=== PATIENT | female | born 1995 | race Two or more races ===

== ENCOUNTER 2019-10-08 06:25 | Inpatient (IN) | payer MEDICAID ==
[~2019-10-08] VITALS: Ht 157.5 cm; Wt 92.5 kg
[~2019-10-08 06:25] MED LIST: PREN-96 PO
[2019-10-08] MEDS ORDERED: LACT. RINGERS/OXYTOCIN 20UNITS 1,000 ML IV SCH (07:57)
[2019-10-08] MEDS ORDERED: PHISODERM TOP SOLN 240ML BTL TOP PRN (08:00)
[2019-10-08] MEDS ORDERED: LIDOCAINE 2%HCL (LOCAL ANESTH.) INJ 20ML MDV ID ONE (08:00)
[2019-10-08] MEDS ORDERED: DERMOPLAST 60ML BOTTLE TOP PRN (08:00)
[2019-10-08] MEDS ORDERED: WITCH HAZEL-GLYCERIN PAD TOP PRN (08:00)
[2019-10-08] MEDS ORDERED: BETAMETHASONE ACET (6MG/ML) 5ML VIAL IM ONE ×2 (08:00→20:30)
[2019-10-08] MEDS ORDERED: NALBUPHINE HCL 10 MG/1ml INJECTION IV PRN (08:00)
[2019-10-08] MEDS: ceFAZolin 1GM/50ML 50 ML IV SCH ×2 (08:37→16:44)
[2019-10-08 08:42] LABS: Basophils # (auto) 0.1 uL; Basophils % (auto) 0.5 % (0.0-2.0); Eosinophils # (auto) 0.1 uL; Eosinophils % (auto) 0.7 % (0.0-7.0); Hematocrit 39.2 % (36.0-46.0); Lymphocytes # (auto) 2.5 uL; Lymphocytes % (auto) 21.4 % (10.0-50.0); Mean Corpuscular Hemoglobin 27.4 pg (28.0-32.0); Mean Corpuscular Hgb Conc. 33.2 g/dL (32.0-36.0); Mean Corpuscular Volume 82.5 fL (80.0-100.0); Monocytes # (auto) 0.7 uL; Monocytes % (auto) 6.2 % (0.0-12.0); Neutrophils # (auto) 8.2 uL; Neutrophils % (auto) 71.2 % (37.0-80.0); Nucleated Red Blood Cells % 0.1 %; Platelet Count (auto) 250 10^3/uL (140-450); Red Blood Cells 4.74 10^6/uL (4.0-5.20); Red Cell Distribution Width 13.8 % (11.8-14.3); White Blood Cell 11.6 10^3/uL (4.4-10.8)
[2019-10-08] MEDS: LACTATED RINGER'S 1,000 ML IV SCH ×3 (08:43→22:04)
[2019-10-08 08:51] LABS: Urine Bacteria NONE SEEN /hpf (None Seen); Urine Blood Negative /uL (Negative); Urine Specific Gravity 1.021 (1.001-1.035); Urine WBC 1 /hpf (0 - 5)
[2019-10-08 08:56] LABS: INR 0.91 (0.9-1.15); Partial Thromboplastin Time 25.9 sec (23.64-32.05)
[2019-10-08 08:59] LABS: Albumin 2.4 g/dL (3.4-5.0); Potassium 4.1 mmol/L (3.5-5.1)
[2019-10-08 09:05] LABS: Bilirubin, Total 0.5 mg/dL (0.2-1.0); Total Protein 6.9 g/dL (6.4-8.2); Uric Acid 4.8 mg/dL (2.6-6.0)
[2019-10-09] MEDS: ceFAZolin 1GM/50ML 50 ML IV SCH ×2 (00:45→08:58)
[2019-10-09] MEDS: LACTATED RINGER'S 1,000 ML IV SCH ×4 (04:47→14:33)
[2019-10-09 05:06] LABS: RPR Non Reactive (Non Reactive)
[2019-10-09] MEDS ORDERED: LACT. RINGERS/OXYTOCIN 20UNITS 1,000 ML IV SCH ×2 (06:03→06:58)
[2019-10-09] MEDS ORDERED: TERBUTALINE SULFATE 1 MG/ML 1ML VIAL SC ONE (06:15)
[2019-10-09] MEDS ORDERED: TERBUTALINE SULFATE 1 MG/ML 1ML VIAL SC PRN (07:00)
[2019-10-09] MEDS ORDERED: ePHEDrine SULFATE 50 MG/ML AMP IV ONE (08:45)
[2019-10-09] MEDS ORDERED: NALOXONE HCL 0.4 MG/ML VIAL IV ONE (08:45)
[2019-10-09] MEDS ORDERED: fentaNYL W ROPIVACAINE 150 ML EPI SCH (08:45)
[2019-10-09] MEDS ORDERED: DEXTROSE 10% 5 ML IV ONE (17:15)
[2019-10-09] MEDS ORDERED: DEXTROSE 10% 250 ML IV SCH (17:15)
[2019-10-09] MEDS: IBUPROFEN 600 MG TAB PO PRN ×2 (18:30→23:01)
[2019-10-09 18:47] VITALS: BP 128/64
[2019-10-09 23:00] VITALS: BP 92/50
[2019-10-10 02:34] VITALS: BP 94/48
--- NOTE | 2019-10-10 06:00 | NUR ---
IV removal IV DC'd Right hand with clean sterile technique, catheter fully intact. Pressure dressing applied to site. Patient tolerated well. NOTE:
[2019-10-10 07:17] VITALS: BP 115/58
[2019-10-10] MEDS: IBUPROFEN 600 MG TAB PO PRN (07:36)
[2019-10-10 10:39] VITALS: BP 106/66
--- NOTE | 2019-10-10 10:40 | NUR ---
PT PUMPING AT THIS TIME IN ROOM. NO DISTRESS NOTED. PT DENIES ANY PAIN AT THIS TIME. WILL CONTINUE TO MONITOR.
--- NOTE | 2019-10-10 12:00 | NUR ---
Discharge: Discharge instructions given as ordered. Pt encouraged to follow up with [facility] as instructed. All questions and concerns addressed. Patient verbalized understanding. Medication reconciliation completed and copy given to patient. Patient encouraged to prepare to depart unit.
--- NOTE | 2019-10-10 12:05 | NUR ---
DR. GARCIA AT NURSES STATION, FULL SBAR GIVEN, STATUS UPDATE GIVEN ON PATIENT, TRENDING VITAL SIGNS GIVEN. ORDERS RECEIVED FROM DR. GARCIA TO DISCHARGE PT HOME AND FOLLOW UP SCHEDULED IN OB CLINIC. READ BACK ND VERIFIED ORDERS. WILL CARRY OUT.
--- NOTE | 2019-10-10 12:55 | NUR ---
PT PUMPING AT BEDSIDE, WILL NOTIFY RN WHEN FINISHED TO BE DISCHARGED. NO S/S OF DISTRESS OR SOB NOTED. WILL CONTINUE TO MONITOR.
--- NOTE | 2019-10-10 13:11 | NUR ---
PT FINISHED PUMPING, PREPARING TO DEPART UNIT.
--- NOTE | 2019-10-10 13:15 | NUR ---
Discharge: Patient taken to vehicle ambulatory via steady gait, pt declined wheelchair with all personal belongings, accompanied by staff and and family members. No distress noted at time of departure, no adverse changes in status since initial assessment.
== END 2019-10-10 13:15 | disposition home or self-care (01) | DRG 560 ==
LOC: LDRP 06:25 → MERGE 07:55 → OBSVTOIN 07:55 → LDRP 08:18
PROVIDERS: ADMIT Obstetrics & Gynecology; ATTEND Obstetrics & Gynecology
PROC: 10E0XZZ Delivery of Products of Conception, External Approach (ICD-10-PCS; principal; 2019-10-10)
PROC: 3E0R3BZ Introduction of Anesthetic Agent into Spinal Canal, Percutaneous Approach (ICD-10-PCS; 2019-10-10)
PROC: 00HU33Z Insertion of Infusion Device into Spinal Canal, Percutaneous Approach (ICD-10-PCS; 2019-10-10)
DX: O42.913 Preterm premature rupture of membranes, unspecified as to length of time between rupture and onset of labor, third trimester (principal); O69.81X0 Labor and delivery complicated by cord around neck, without compression, not applicable or unspecified; Z37.0 Single live birth; Z3A.36 36 weeks gestation of pregnancy
CPT/HCPCS: 36415; 59025; 59409; 76805; 80053; 81001; 81002; 84112; 84550; 85025; 85610; 85730; 86592; 86850; 86900; 86901; 96361; 96366; 96372; G0378; J0690; J2590; J3010

== ENCOUNTER 2020-10-07 12:06 | Observation (INO) | payer MEDICAID | END 2020-10-07 14:48 | disposition home or self-care (01) | LOC: LDRP 12:06 | PROVIDERS: ADMIT Specialist; ATTEND Specialist | DX: O26.93 Pregnancy related conditions, unspecified, third trimester (principal); O99.513 Diseases of the respiratory system complicating pregnancy, third trimester; R42 Dizziness and giddiness; R06.02 Shortness of breath; G89.29 Other chronic pain; M54.5 Low back pain; Z3A.35 35 weeks gestation of pregnancy | CPT/HCPCS: 59025; 76818; 81002; G0378 ==

== ENCOUNTER 2020-10-09 13:58 | Observation (INO) | payer MEDICAID ==
[2020-10-13] MEDS ORDERED: ACYC1CAP23 PO ×2 (16:35)
[2020-10-13] MEDS ORDERED: NIF10C PO ×2 (19:26)
== END 2020-10-09 15:12 | disposition home or self-care (01) ==
LOC: LDRP 13:58
PROVIDERS: ADMIT Obstetrics & Gynecology; ATTEND Obstetrics & Gynecology
DX: O40.3XX0 Polyhydramnios, third trimester, not applicable or unspecified (principal); Z3A.35 35 weeks gestation of pregnancy
CPT/HCPCS: 59025; 76818; 81002; G0378

== ENCOUNTER 2020-10-13 14:46 | Observation (INO) | payer MEDICAID ==
[2020-10-13] MEDS ORDERED: ACYC1CAP23 PO (16:35)
[2020-10-13] MEDS ORDERED: BETAMETHASONE ACET (6MG/ML) 5ML VIAL IM ONE (17:00)
[2020-10-13] MEDS ORDERED: LACTATED RINGER'S 1,000 ML IV ONE (17:00)
[2020-10-13] MEDS ORDERED: TERBUTALINE SULFATE 1 MG/ML 1ML VIAL SC ONE (18:09)
[2020-10-13] MEDS ORDERED: TERBUTALINE SULFATE 1 MG/ML 1ML VIAL SC SCH (18:15)
[2020-10-13] MEDS ORDERED: NIF10C PO (19:26)
== END 2020-10-13 19:40 | disposition home or self-care (01) ==
LOC: LDRP 14:46
PROVIDERS: ADMIT Obstetrics & Gynecology; ATTEND Obstetrics & Gynecology
DX: O40.3XX0 Polyhydramnios, third trimester, not applicable or unspecified (principal); O62.9 Abnormality of forces of labor, unspecified; Z3A.36 36 weeks gestation of pregnancy
CPT/HCPCS: 59025; 76818; 81002; 96360; 96361; 96372; G0378; J0702; J3105

== ENCOUNTER 2020-10-14 16:57 | Observation (INO) | payer MEDICAID ==
[~2020-10-14 16:57] MED LIST changes: +ACYC1CAP23 PO; +NIF10C PO
[2020-10-14] MEDS ORDERED: BETAMETHASONE ACET (6MG/ML) 5ML VIAL IM ONE (17:30)
== END 2020-10-14 18:05 | disposition home or self-care (01) ==
LOC: LDRP 16:57
PROVIDERS: ADMIT Specialist; ATTEND Specialist
DX: O60.03 Preterm labor without delivery, third trimester (principal); O40.3XX0 Polyhydramnios, third trimester, not applicable or unspecified; Z3A.36 36 weeks gestation of pregnancy
CPT/HCPCS: 59025; 81002; 82948; 82962; 96372; G0378; J0702

== ENCOUNTER 2020-10-17 11:10 | Observation (INO) | payer MEDICAID | END 2020-10-17 12:25 | disposition home or self-care (01) | LOC: UNDOADMOB 11:10 → LDRP 11:10 → UNDODISOB 12:25 | PROVIDERS: ADMIT Obstetrics & Gynecology; ATTEND Obstetrics & Gynecology | DX: O60.03 Preterm labor without delivery, third trimester (principal); O40.3XX0 Polyhydramnios, third trimester, not applicable or unspecified; Z3A.36 36 weeks gestation of pregnancy; Z79.899 Other long term (current) drug therapy | CPT/HCPCS: 59025; 81002; G0378 ==

== ENCOUNTER 2020-10-20 18:54 | Observation (INO) | payer MEDICAID | END 2020-10-20 20:13 | disposition home or self-care (01) | LOC: LDRP 18:54 | PROVIDERS: ADMIT Obstetrics & Gynecology; ATTEND Obstetrics & Gynecology | DX: O40.3XX0 Polyhydramnios, third trimester, not applicable or unspecified (principal); Z3A.37 37 weeks gestation of pregnancy | CPT/HCPCS: 59025; 76818; 81002; G0378 ==

== ENCOUNTER 2020-10-27 19:09 | Observation (INO) | payer MEDICAID ==
[~2020-10-27 19:09] MED LIST changes: -NIF10C PO
== END 2020-10-27 20:57 | disposition home or self-care (01) ==
LOC: UNDOADMOB 19:09 → LDRP 19:09 → UNDODISOB 20:57
PROVIDERS: ADMIT Obstetrics & Gynecology; ATTEND Obstetrics & Gynecology
DX: O40.3XX0 Polyhydramnios, third trimester, not applicable or unspecified (principal); Z3A.38 38 weeks gestation of pregnancy
CPT/HCPCS: 59025; 76818; 81002; G0378

== ENCOUNTER 2020-10-30 18:50 | Observation (INO) | payer MEDICAID | END 2020-10-30 20:22 | disposition home or self-care (01) | LOC: UNDOADMOB 18:50 → LDRP 18:50 → UNDODISOB 20:22 | PROVIDERS: ADMIT Obstetrics & Gynecology; ATTEND Obstetrics & Gynecology | DX: O40.3XX0 Polyhydramnios, third trimester, not applicable or unspecified (principal); Z3A.38 38 weeks gestation of pregnancy | CPT/HCPCS: 59025; 76818; 81002; G0378 ==

== ENCOUNTER 2020-11-04 06:50 | Inpatient (IN) | payer MEDICAID ==
[~2020-11-04] VITALS: Ht 160 cm; Wt 101.2 kg
[2020-11-04] MEDS ORDERED: PHISODERM TOP SOLN 240ML BTL TOP PRN (07:15)
[2020-11-04] MEDS ORDERED: DERMOPLAST 60ML BOTTLE TOP PRN (07:15)
[2020-11-04] MEDS ORDERED: miSOPROStol 50 MCG per PRE-CUT 1/2 TAB PO PRN (07:15)
[2020-11-04] MEDS ORDERED: BUTORPHANOL TARTRATE 2 MG/1 ML VIAL IV PRN ×2 (07:15)
[2020-11-04] MEDS ORDERED: LIDOCAINE 2%HCL (LOCAL ANESTH.) INJ 20ML MDV IJ PRN (07:15)
[2020-11-04] MEDS ORDERED: WITCH HAZEL-GLYCERIN PAD TOP PRN (07:15)
[2020-11-04] MEDS ORDERED: PROMETHAZINE HCL 25 MG/ML 1ML IV PRN (07:15)
[2020-11-04] MEDS: LACTATED RINGER'S 1,000 ML IV SCH ×2 (07:35→14:51)
[2020-11-04] MEDS ORDERED: LACT. RINGERS/OXYTOCIN 20UNITS 1,000 ML IV ONE (07:45)
[2020-11-04 08:35] LABS: Urine Bacteria FEW /hpf (None Seen); Urine Blood TRACE /uL (Negative); Urine Hyaline Cast FEW /lpf (0 - 2); Urine Mucus FEW (None Seen); Urine Specific Gravity 1.025 (1.001-1.035); Urine WBC 7 /hpf (0 - 5)
[2020-11-04 08:39] LABS: Alcohol, Urine < 3.0 mg/dL (0-10); Amphetamine Screen, Urine NEGATIVE (NEGATIVE); Barbiturate Scree,Urine NEGATIVE (NEGATIVE); Benzodiazephine Screen, Urine NEGATIVE (NEGATIVE); Cannabinoid Screen, Urine NEGATIVE (NEGATIVE); Cocaine Screen, Urine NEGATIVE (NEGATIVE); Opiate Scree,Urine NEGATIVE (NEGATIVE); Phencyclidine Screen, Urine NEGATIVE (NEGATIVE)
[2020-11-04 09:02] LABS: Basophils # (auto) 0.1 10 ^3/uL (0-0.2); Eosinophils # (auto) 0.1 10 ^3/uL (0-0.8); Lymphocytes # (auto) 2.6 10 ^3/uL (0.4-5.4); Mean Corpuscular Hemoglobin 26.7 pg (28.0-32.0); Monocytes # (auto) 0.6 10 ^3/uL (0-1.3); Neutrophils # (auto) 6.9 10 ^3/uL (1.6-8.6)
[2020-11-04 09:03] LABS: Basophils % (auto) 0.6 % (0.0-2.0); Eosinophils % (auto) 0.9 % (0.0-7.0); Hematocrit 37.4 % (36.0-46.0); Hemoglobin 12.3 g/dL (12.2-16.2); Lymphocytes % (auto) 25.5 % (10.0-50.0); Mean Corpuscular Volume 81.1 fL (80.0-100.0); Nucleated Red Blood Cells % 0.1 %; Platelet Count (auto) 240 10^3/uL (140-450); Red Blood Cells 4.62 10^6/uL (4.0-5.20); Red Cell Distribution Width 14.5 % (11.8-14.3); White Blood Cell 10.3 10^3/uL (4.4-10.8)
[2020-11-04 09:16] LABS: INR 0.95 (0.9-1.15); Partial Thromboplastin Time 23.7 sec (23.0-31.2)
[2020-11-04 09:26] LABS: Potassium 3.9 mmol/L (3.5-5.1)
[2020-11-04 09:32] LABS: BUN/Creatinine Ratio 12.5
[2020-11-04 09:33] LABS: Albumin 2.2 g/dL (3.4-5.0); Bilirubin, Total 0.7 mg/dL (0.2-1.0); Calcium 8.7 mg/dL (8.5-10.1); Total Protein 6.7 g/dL (6.4-8.2)
[2020-11-04 11:00] VITALS: BP 123/69
[2020-11-04] MEDS ORDERED: ePHEDrine SULFATE 50 MG/ML AMP IV ONE ×2 (15:00→15:30)
[2020-11-04] MEDS ORDERED: ROPIVACAINE HCL 200 ML EPI SCH (15:00)
[2020-11-04] MEDS ORDERED: LACTATED RINGER'S 1,000 ML IV ONE (15:00)
[2020-11-04] MEDS ORDERED: NALOXONE HCL 0.4 MG/ML VIAL IV ONE ×2 (15:00→15:30)
[2020-11-04] MEDS ORDERED: fentaNYL CITRATE 100 MCG/2 ML VL EPI ONE (15:30)
[2020-11-04] MEDS: LIDOCAINE HCL 2 %PF INJ 10ML AMP IJ ONE ×2 (15:46→18:00)
[2020-11-04] MEDS ORDERED: ACETAMINOPHEN 325 MG TAB PO PRN (23:15)
[2020-11-04] MEDS: IBUPROFEN 600 MG TAB PO PRN (23:49)
[2020-11-05 03:00] VITALS: BP 128/75
[2020-11-05] MEDS: IBUPROFEN 600 MG TAB PO PRN ×3 (04:29→17:06)
[2020-11-05 06:39] VITALS: BP 101/62
[2020-11-05 08:06] LABS: RPR Non Reactive (Non Reactive)
[2020-11-05 11:00] VITALS: BP 109/63
[2020-11-05 15:00] VITALS: BP 98/53
[2020-11-05] MEDS ORDERED: ROPIVACAINE HCL 200 ML EPI SCH (15:00)
[2020-11-05 19:00] VITALS: BP 112/61
== END 2020-11-05 19:46 | disposition home or self-care (01) | DRG 560 ==
LOC: LDRP 06:50
PROVIDERS: ADMIT Specialist; ATTEND Specialist
PROC: 10E0XZZ Delivery of Products of Conception, External Approach (ICD-10-PCS; principal; 2020-11-04)
PROC: 10907ZC Drainage of Amniotic Fluid, Therapeutic from Products of Conception, Via Natural or Artificial Opening (ICD-10-PCS; 2020-11-04)
PROC: 3E0R3BZ Introduction of Anesthetic Agent into Spinal Canal, Percutaneous Approach (ICD-10-PCS; 2020-11-04)
PROC: 00HU33Z Insertion of Infusion Device into Spinal Canal, Percutaneous Approach (ICD-10-PCS; 2020-11-04)
DX: O69.81X0 Labor and delivery complicated by cord around neck, without compression, not applicable or unspecified (principal); O36.63X0 Maternal care for excessive fetal growth, third trimester, not applicable or unspecified; Z37.0 Single live birth; Z3A.39 39 weeks gestation of pregnancy; Z20.828 Contact with and (suspected) exposure to other viral communicable diseases
CPT/HCPCS: 36415; 59025; 59409; 62282; 80053; 80307; 81001; 85025; 85610; 85730; 86592; 86850; 86900; 86901; 87426; 96360; 96361; 96365; 96366; G0378; J2590

== ENCOUNTER → 2025-10-07 | Outpatient (CLI) | payer MEDICAID ==
[~2025-10-07] MED LIST changes: -ACYC1CAP23 PO
[2025-10-07 15:33] LABS: Hematocrit 42.7 % (36.0-46.0); Hemoglobin 14.4 g/dL (12.2-16.2); Mean Corpuscular Hemoglobin 28.1 pg (28.0-32.0); Mean Corpuscular Volume 83.5 fL (80.0-100.0); Nucleated Red Blood Cells % 0.1 %
[2025-10-07 16:21] LABS: Alanine Aminotransferase 26 U/L (7-40); Albumin 4.6 g/dL (3.2-4.8); Alkaline Phosphatase 62 U/L (46-116); Anion Gap 12 (5-15); BUN/Creatinine Ratio 15.3 (10.0-20.0); Bilirubin, Total 0.7 mg/dL (0.2-1.0); Blood Urea Nitrogen 9 mg/dL (9-23); Calcium 9.9 mg/dL (8.7-10.4); Carbon Dioxide 22 mmol/L (20-31); Chloride 104 mmol/L (98-107); Glucose 82 mg/dL (74-106); Potassium 3.8 mmol/L (3.5-5.1); Sodium 138 mmol/L (136-145); Total Protein 7.7 g/dL (5.7-8.2)
[2025-10-07 16:23] LABS: Thyroid Stimulating Hormone 1.3 uIU/mL (0.55-4.78)
[2025-10-07 16:38] LABS: Amphetamine Screen, Urine Neg (NEGATIVE); Barbiturate Scree,Urine Neg (NEGATIVE); Benzodiazephine Screen, Urine Neg (NEGATIVE); Cannabinoid Screen, Urine Neg (NEGATIVE); Cocaine Screen, Urine Neg (NEGATIVE); Opiate Scree,Urine Neg (NEGATIVE); Phencyclidine Screen, Urine Neg (NEGATIVE)
[2025-10-08 10:03] LABS: Hepatitis B Surface Antigen Negative (Negative)
[2025-10-08 10:27] LABS: Hepatitis A Total Antibody Positive (Negative)
[2025-10-09 04:07] LABS: Chlamydia Trachomatis, NAA Negative (Negative); Neisseria gonorrhoeae, NAA Negative (Negative)
== END | disposition home or self-care (01) ==
LOC: LAB 14:44
PROVIDERS: ATTEND Obstetrics & Gynecology
DX: O99.280 Endocrine, nutritional and metabolic diseases complicating pregnancy, unspecified trimester (principal); O23.40 Unspecified infection of urinary tract in pregnancy, unspecified trimester; E28.2 Polycystic ovarian syndrome; N39.0 Urinary tract infection, site not specified; Z11.2 Encounter for screening for other bacterial diseases; Z11.3 Encounter for screening for infections with a predominantly sexual mode of transmission; Z01.419 Encounter for gynecological examination (general) (routine) without abnormal findings; Z31.430 Encounter of female for testing for genetic disease carrier status for procreative management; Z3A.00 Weeks of gestation of pregnancy not specified
CPT/HCPCS: 36415; 80053; 80307; 84439; 84443; 84702; 85025; 86703; 86708; 86762; 86780; 86787; 86850; 86900; 86901; 87086; 87340